=== PATIENT | male | born 1985 | race Caucasian/White ===

== ENCOUNTER 2017-03-17 14:11 | Emergency (ER) | payer MEDICAID ==
--- NOTE | 2017-03-17 14:35 | EDPHY ---
H & P Stated Complaint: fell hit head last night last night, disoriented HPI/ROS: CHIEF COMPLAINT: Fell last night, worried about concussion HISTORY OF PRESENT ILLNESS: This is a 31-year-old male who is accompanied by his fiancee today. He was intoxicated last night and fell, striking his head against a wall. There was no loss of consciousness. He has headache today and reported to the nurse that he feels somewhat disoriented. He denies visual changes, confusion, weakness, or numbness to me. He does not have neck pain. He is concerned about the possibility of concussion and his fiancee is concerned that he could have intracranial bleeding. He has not had seizure. There have been no behavioral changes today. He reports drinking 3-4 times weekly, a 5th of vodka each time. He admits that he has a problem with alcohol abuse. He was sober for a time period of 3 years but has resumed drinking. He has never had any problems with alcohol withdrawal symptoms. REVIEW OF SYSTEMS: A ten point review of systems was performed and is negative with the exception of the items mentioned in the HPI. Past medical history: 1. History of alcohol abuse 2. 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 He is engaged to be . He smokes 1 pack of cigarettes daily. He drinks 3-4 times weekly, and will drink a 5th of vodka at a sitting. General Appearance: Alert. Vital signs reviewed. Blood pressure 162/126 at triage. Blood pressure at discharge 152/101. Eyes: Pupils equal and round, no conjunctival injection, no discharge. Anicteric. ENT, Mouth: Mucous membranes are moist, no oropharyngeal erythema or edema. Neck: No lymphadenopathy, supple. Nontender to palpation over the cervical spine in the midline. Respiratory: Lungs are clear to auscultation; no wheezes, rales, or rhonchi. Cardiovascular: Regular rate and rhythm; no murmur, rub, or gallop. Gastrointestinal: Abdomen is soft and nontender, no masses or organomegaly, bowel sounds normal. Skin: Warm and dry, no rashes on exposed skin, normal color. Back: Nontender to palpation over the thoracolumbar spine. No CVAT. Extremities: No lower extremity edema, no calf tenderness or swelling. Neurological: Alert and oriented. Moving all four extremities easily and equally. Cranial nerves II through XII are examined and are intact (visual acuity not tested). Strength is 5 over 5 bilaterally with testing of all major motor groups. Sensation is intact to light touch over all 4 extremities. Deep tendon reflexes are 2+ in the biceps and 3+ in the knees bilaterally. No clonus. Gait is normal. [id number] is performed accurately. Psychiatric: Normal affect. - Medical/Surgical History Hx Asthma: No Hx Chronic Respiratory Disease: No Hx Diabetes: No Hx Cardiac Disease: No Hx Renal Disease: No Hx Cirrhosis: No Hx Alcoholism: No Hx HIV/AIDS: No Hx Splenectomy or Spleen Trauma: No Other PMH: hernia sx - Social History Smoking Status: Current every day smoker Constitutional: Initial Vital Signs Temperature (C) 37 C 03/17/17 14:14 Heart Rate 92 03/17/17 14:14 Respiratory Rate 18 03/17/17 14:14 Blood Pressure 162/126 H 03/17/17 14:14 O2 Sat (%) 96 03/17/17 14:14 O2 Delivery Mode Room Air Allergies/Adverse Reactions: No Known Allergies Allergy (Unverified 03/17/17 14:14) Home Medications: Medication Instructions Recorded NK [No Known Home Meds] 03/17/17 Medical Decision Making ED Course/Re-evaluation: 31-year-old male with history of alcohol abuse who presents after falling and striking his head last night. He has headache today; neurologic exam is normal. I do not recommend brain imaging in this setting. It is unlikely that of surgical otherwise pertinent abnormality would be discovered on CT scanning of the brain. I have discussed this with the patient and his fiancee and they are fine with the decision to forego any imaging. I have not found evidence of any injuries incurred during the fall. We spoke at some length about his alcohol abuse. I strongly recommended that he quit drinking. He is given information about the a hotline and also the [facility]. We also discussed smoking cessation. He smokes 1 pack a day. He was hypertensive while in the emergency department. Some of this might be related to the fact that he has not had any alcohol today. He is aware that his blood pressure is high. He does not have a primary care physician but is referred to 1 and understands that he should have his blood pressure rechecked within the month. Differential Diagnosis: I considered a differential diagnosis that includes but is not limited to tension headache, concussion, intracranial hemorrhage, skull fracture, cervical strain, and cervical spine injury. Departure - Departure Disposition: Home, Routine, Self-Care Clinical Impression: Alcohol abuse Condition: Good Instructions: Concussion (ED), Abuse of Alcohol (ED) Additional Instructions: As we discussed, I think that it is important for you to quit drinking. I am giving you referrals to Alcoholics Anonymous and to the [facility]. I also recommend that you try to quit smoking. I am also giving you information about concussion. I do not know that you have a concussion, but it is important for you to have this information to refer to. When you return home today should drink lots of water. I recommend that you take Tylenol and/or ibuprofen for pain. Adult Pain & Fever Control: We recommend Acetaminophen (Tylenol) and Ibuprofen (Motrin,Advil) for pain and fever control. When fever is high or pain severe, both drugs can be used at the same time, but at different intervals. Please note the time differences. Your dose is: Acetaminophen 650mg every 4 to 6 hours Ibuprofen 400mg every 6 hours with food OR Naproxen Sodium (Aleve) mg every 12 hours. Note: do not take Acetaminophen with Hydrocodone (Vicodin, Lortab) or Oycodone (Percocet). These medications also contain Acetaminophen. No more than 3000mg of Acetaminophen should be taken in 24 hours (for an adult). Referrals: Tasha Ley MD [[facility] [place]] - As per Instructions AA Hotline [Outside] - As per Instructions [facility] 24 Hours [Outside] - As per Instructions Physician Review and Approval Statement: 03/17/17 14:34 Portions of this note were transcribed by the medical claims processor. I, Dr. Asia Richard, personally performed the history, physical exam, and medical decision- making; and confirmed the accuracy of the information in the transcribed note.
[2017-03-17 15:09] VITALS: BP 152/101; PULSE 88; RESP 16; TEMP 97.9; O2SAT 97
== END 2017-03-17 15:09 | disposition home or self-care (01) ==
DX: S09.90XA Unspecified injury of head, initial encounter (principal); W19.XXXA Unspecified fall, initial encounter; R51 Headache; F10.10 Alcohol abuse, uncomplicated; F17.200 Nicotine dependence, unspecified, uncomplicated
CPT/HCPCS: J2405

== ENCOUNTER 2017-03-17 22:07 | Emergency (ER) | payer MEDICAID ==
--- NOTE | 2017-03-17 22:12 | EDPHY ---
H & P HPI/ROS: HPI CHIEF COMPLAINT: Headache HISTORY OF PRESENT ILLNESS: This patient 31-year-old male, significant past medical history for alcohol abuse and tobacco abuse. He is an alcoholic. He was seen here earlier in the emergency room around 2 o'clock for possible head injury. At that time he did not have a CT scan of his head. He was sober at that time. After leaving the emergency room he went out and drank a large amount of alcohol to the point where he is highly intoxicated. His returns with him at 10 o'clock at night as he is highly intoxicated alcohol and vomited 1 time that she describes projectile. Patient distally tells me has a global frontal headache. His is concerned that he may have an intracranial bleed and that is why she brought him back. The patient neurological exam is unremarkable here in the emergency room other than he is highly intoxicated alcohol slurring his speech. The patient had a fall yesterday after becoming intoxicated. Striking his head. Past Medical History: Alcoholism, tobacco use Past Surgical History: No recent surgery Social History: Daily alcohol use, daily tobacco use Family History: Noncontributory ROS REVIEW OF SYSTEMS: A comprehensive 10 point review of systems is otherwise negative aside from elements mentioned in the history of present illness. Exam Constitutional intoxicated, smells of alcohol, triage nursing summary reviewed , vital signs reviewed, awake/alert. Eyes normal conjunctivae and sclera, EOMI, PERRLA. Horizontal beating nystagmus consistent with acute alcohol intoxication HENT normal inspection, atraumatic, moist mucus membranes, no epistaxis, neck supple/ no meningismus, no raccoon eyes. Respiratory clear to auscultation bilaterally, normal breath sounds, no respiratory distress, no wheezing. Cardiovascular rate normal, regular rhythm, no murmur, no edema, distal pulses normal. Gastrointestinal soft, non-tender, no rebound, no guarding, normal bowel sounds, no distension, no pulsatile mass. Genitourinary no CVA tenderness. Musculoskeletal no midline vertebral tenderness, full range of motion, no calf swelling, no tenderness of extremities, no meningismus, good pulses, neurovascularly intact. Skin pink, warm, & dry, no rash, skin atraumatic. Neurologic awake, alert and oriented x 3, AAOx3, moves all 4 extremities equally, motor intact, sensory intact, CN II-XII intact, normal vision, slurring his speech due to acute alcohol intoxication Psychiatric normal mood/affect. Heme/Lymph/Immune no lymphadenopathy. Differential Diagnosis: Includes but is not limited to in a particular order closed-head injury, intracranial bleed, skull fracture, subdural, epidural, acute alcohol intoxication Medical Decision Making: Plan for this patient CT scan head without contrast, patient is refusing IV at this time. Will breath alcohol. Re-evaluation: CT scan of the head without contrast. The results of the study are negative for acute traumatic injury. The study was read by Dr. Camacho I viewed the images myself on the PACS system. Breath alcohol 0.228 2308: Re-evaluation at this time patient resting comfortably no acute distress. Acutely intoxicated with alcohol. CT scan of his head does not show acute traumatic injury. He is receiving IV fluids and Zofran at this time. Once more clinically sober he can be discharged from the emergency room with his fiancee. 2327: Re-evaluation at this time patient requesting discharge. He is clinically sober. Stable gait. Feels comfortable going home. Feels at bedside feels comfortable this plan. CT scan has had not show any significant trauma. Alcohol was elevated at breath alcohol 0.228. Feeling better. Would like to go home. Source: Patient - Medical/Surgical History Hx Asthma: No Hx Chronic Respiratory Disease: No Hx Diabetes: No Hx Cardiac Disease: No Hx Renal Disease: No Hx Cirrhosis: No Hx Alcoholism: No Hx HIV/AIDS: No Hx Splenectomy or Spleen Trauma: No Other PMH: hernia sx - Social History Smoking Status: Current every day smoker Constitutional: Initial Vital Signs Temperature (C) 36.6 C 03/17/17 22:21 Heart Rate 97 03/17/17 22:21 Respiratory Rate 18 03/17/17 22:21 Blood Pressure 155/119 H 03/17/17 22:21 O2 Sat (%) 96 03/17/17 22:21 O2 Delivery Mode Room Air Allergies/Adverse Reactions: No Known Allergies Allergy (Unverified 03/17/17 14:14) Home Medications: Medication Instructions Recorded NK [No Known Home Meds] 03/17/17 Medical Decision Making - Diagnostics Imaging Results: Imaging Impressions Head CT 03/17/17 22:20 Impression: Normal. Results called and discussed with Rudolph Romero MD at 03/17/2017 22:45. Departure - Departure Disposition: Home, Routine, Self-Care Clinical Impression: Alcohol abuse Condition: Fair Instructions: Alcohol Intoxication (ED), Abuse of Alcohol (ED) Referrals: NONE *PRIMARY CARE P,. [Primary Care Provider] - As per Instructions
[2017-03-17 22:23] VITALS: RESP 18; TEMP 97.9
[2017-03-17] MEDS ORDERED: ONDANSETRON 4 MG/2 ML VIAL IVP ONE (23:05)
[2017-03-17] MEDS ORDERED: NS 1,000 ML IV ONE (23:05)
[2017-03-17 23:07] VITALS: BP 114/104; PULSE 88; O2SAT 95
== END 2017-03-17 23:34 | disposition home or self-care (01) ==
DX: S09.90XA Unspecified injury of head, initial encounter (principal); W01.198A Fall on same level from slipping, tripping and stumbling with subsequent striking against other object, initial encounter; F10.10 Alcohol abuse, uncomplicated; F17.200 Nicotine dependence, unspecified, uncomplicated
CPT/HCPCS: J2405

== ENCOUNTER 2017-06-21 21:53 | Emergency (ER) | payer SELFPAY ==
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
[2017-06-21 22:05] VITALS: BP 121/99; PULSE 107; RESP 18; TEMP 98.1; O2SAT 93
== END 2017-06-21 22:12 ==
LOC: EDUNIT#
DX: F10.129 Alcohol abuse with intoxication, unspecified (principal); F17.200 Nicotine dependence, unspecified, uncomplicated

== ENCOUNTER 2017-10-13 21:49 | Emergency (ER) | payer MEDICAID ==
[2017-10-13] MEDS ORDERED: TDAP ADULT 0.5 ML INJ (BOOSTRIX) IM ONE (21:56)
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
[2017-10-13 21:58] VITALS: BP 133/89; PULSE 105; RESP 18; TEMP 98.1; O2SAT 98
[2017-10-13] MEDS ORDERED: CEFAZOLIN 330 MG/ML IM SYRINGE IM ONE ×2 (22:16→23:00)
== END 2017-10-13 22:49 | disposition home or self-care (01) ==
LOC: EDUNIT#
PROC: 0HQGXZZ Repair Left Hand Skin, External Approach (ICD-10-PCS; principal; 2017-10-13)
DX: S62.611B Displaced fracture of proximal phalanx of left index finger, initial encounter for open fracture (principal); F17.200 Nicotine dependence, unspecified, uncomplicated; W22.8XXA Striking against or struck by other objects, initial encounter
CPT/HCPCS: L3925

== ENCOUNTER 2017-10-14 17:59 | Inpatient (IN) | payer MEDICAID ==
[2017-10-14] MEDS ORDERED: chlordiazePOXIDE 25 MG CAP PO ONE (18:21)
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
[2017-10-14 18:51] LABS: PLATELET COUNT 285 10^3/uL (150-400)
[2017-10-14] MEDS ORDERED: HYDROCODONE/APAP 5/325 TAB PO ONE (21:57)
[2017-10-14] MEDS ORDERED: CEPHALEXIN 500 MG CAP PO ONE (21:57)
[2017-10-14] MEDS ORDERED: ONDANSETRON 4 MG/2 ML VIAL IVP PRN (23:15)
[2017-10-14] MEDS ORDERED: ACETAMINOPHEN 325 MG TAB PO PRN (23:15)
[2017-10-14] MEDS: LORazepam 0.5 MG TAB PO PRN (23:50)
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
[2017-10-15] MEDS ORDERED: diphenhydrAMINE 25 MG CAP PO PRN (00:36)
[2017-10-15] MEDS: LORazepam 2 MG/ML INJ IVP PRN (01:39)
[2017-10-15 05:18] LABS: PLATELET COUNT 219 10^3/uL (150-400)
[2017-10-15] MEDS: CEPHALEXIN 500 MG CAP PO SCH ×3 (06:10→16:58)
--- NOTE | 2017-10-15 07:13 | PDHPUP ---
History & Physical Update H&P update statement: This history and physical update is based on an assessment of the patient which was completed after admission or registration (within 24 hours), but prior to the surgery/procedure. H&P update: H&P reviewed & patient examined, no change in patient's condition since H&P completed
[2017-10-15] MEDS: THIAMINE HCL 100 MG TAB PO SCH (08:08)
[2017-10-15] MEDS: HYDROCODONE/APAP 5/325 TAB PO PRN ×3 (08:24→17:54)
--- NOTE | 2017-10-15 09:54 | PDMN ---
Medical Necessity Medical necessity: Patient meets inpatient criteria per physician note and [facility] GRG vs Musculoskeletal Surgery or Procedure GRG (open hand fracture, awaiting surgical treatment; M1 mental health hold, awaiting eval for possible inpatient psych treatment.)
--- NOTE | 2017-10-15 14:33 | ASMTCMCOM ---
CM Note CM Note Notes: 31yr old male admitted from the snf due to suicidal ideation, fx finger, ETOH abuse. Patient has been medically cleared for TLC eval. CM to follow for possible discharge needs. Date Signed: 10/15/2017 02:33 PM Electronically Signed By:Allison Cordero LCSW
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
[2017-10-15] MEDS: LORazepam 0.5 MG TAB PO PRN (16:58)
[2017-10-16] MEDS: NS 1,000 ML IV SCH (00:20)
[2017-10-16] MEDS: CEPHALEXIN 500 MG CAP PO SCH ×5 (00:20→20:36)
[2017-10-16] MEDS: HYDROCODONE/APAP 5/325 TAB PO PRN ×4 (00:21→20:35)
[2017-10-16] MEDS: LORazepam 0.5 MG TAB PO PRN ×3 (00:21→20:36)
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
[2017-10-16] MEDS: THIAMINE HCL 100 MG TAB PO SCH (08:34)
--- NOTE | 2017-10-16 10:00 | HOSPPROG ---
Hospitalist Progress Note Assessment/Plan: #Etoh dependence and withdrawal: min CIWA needs here. Left index finger fracture: Dr. Bates plans on surgery today #Suicidal ideations: M1 hold. Will be transferred to Behavioral health after surgery #MDD/PTSD: transfer plan as above Disp: DC after hand surgery Subjective: sleeping Objective: Vital Signs Temp Pulse Resp BP Pulse Ox 36.6 C 69 16 150/110 H 96 10/16/17 07:30 10/16/17 07:30 10/16/17 07:30 10/16/17 07:30 10/16/17 07:30 10/15/17 10/16/17 10/17/17 05:59 05:59 05:59 Intake Total 1500 Balance 1500 - Physical Exam Constitutional: no apparent distress, other Eyes: PERRL Ears, Nose, Mouth, Throat: moist mucous membranes Cardiovascular: regular rate and rhythym Respiratory: no respiratory distress Gastrointestinal: normoactive bowel sounds Genitourinary: no bladder fullness Musculoskeletal: full muscle strength, other (left hand casted) Neurologic: AAOx3, CN II-XII Intact Psychiatric: flat affect ICD10 Worksheet Patient Problems: Problems Problem Status Onset Hand fracture Acute
--- NOTE | 2017-10-16 12:53 | ASMTCMCOM ---
CM Note CM Note Notes: Patient remains suicidal although he is now agreeing to needed surgery. When cleared from surgical procedures, patient to go to , [facility], who is holding a bed for him. CM available for consult and transport needs. CM will follow. Date Signed: 10/16/2017 12:52 PM Electronically Signed By:Cristal Aguirre LCSW
[2017-10-16] MEDS ORDERED: BUPIVACAINE 0.5% 30 ML SDV ONE (15:34)
--- NOTE | 2017-10-16 16:16 | PDANEPAE ---
ANE History of Present Illness Left index finger fracture ANE Past Medical History - Pulmonary History Hx Oxygen in Use at Home: No Hx Sleep Apnea: No Sleep Apnea Screening Result - Last Documented: Positive - Endocrine History Hx Diabetes: No - Chronic Pain History Chronic Pain: No ANE Review of Systems Review of Systems: - Exercise capacity METS (RN): 4 METS - Systems Neurological: Reports: seizure (with etoh withdrawal) ANE Patient History - Allergies Allergies/Adverse Reactions: No Known Allergies Allergy (Verified 10/14/17 18:18) - Home Medications Home medications: home medication list seen and reviewed Home Medications: Naproxen Sodium [Aleve 220 MG (*)] 220 mg PO DAILY PRN 10/15/17 [Last Taken Unknown] - NPO status NPO Since - Liquids (Date): 10/16/17 NPO Since - Liquids (Time): 13:30 NPO Since - Solids (Date): 10/15/17 NPO Since - Solids (Time): 00:00 - Anes Hx Anes Hx: no prior problems - Smoking Hx Smoking Status: Heavy smoker - Alcohol Use Alcohol Use: Heavy (Of 5th to greater than 1 L of hard liquor on a daily basis since the age of 10) - Family Anes Hx Family Anes Hx: neg - N/A ANE Labs/Vital Signs - Labs Result Diagrams: 10/15/17 05:00 10/15/17 05:00 - Vital Signs Blood Pressure: 126/91 Heart Rate: 65 Respiratory Rate: 16 O2 Sat (%): 97 Height: 175.26 cm Weight: 90.718 kg ANE Physical Exam - Airway Neck exam: FROM Mallampati Score: Class 1 Mouth exam: dentures (upper) - Pulmonary Pulmonary: clear to auscultation - Cardiovascular Cardiovascular: regular rate and rhythym - ASA Status ASA Status: II ANE Anesthesia Plan Anesthesia Plan: GA w LMA
[2017-10-16] MEDS ORDERED: MIDAZOLAM 2 MG/2 ML VIAL IVP ONE (16:19)
[2017-10-16] MEDS ORDERED: PROPOFOL 200 MG/20 ML VIAL ONE ×3 (17:15→17:24)
[2017-10-16] MEDS ORDERED: fentaNYL 100 MCG/2 ML INJ ONE ×2 (17:16→17:40)
[2017-10-16] MEDS ORDERED: DEXAMETHASONE 4 MG/ML VIAL ONE (17:31)
[2017-10-16] MEDS ORDERED: ONDANSETRON 4 MG/2 ML VIAL ONE (17:31)
[2017-10-16] MEDS ORDERED: NALOXONE HCL 0.4 MG/ML INJ IVP PRN (17:35)
[2017-10-16] MEDS ORDERED: HYDROmorphONE/DILAUDID 1 MG/ML INJ IVP PRN (17:35)
[2017-10-16] MEDS ORDERED: ONDANSETRON 4 MG/2 ML VIAL IVP PRN (17:35)
[2017-10-16] MEDS ORDERED: fentaNYL 100 MCG/2 ML INJ IVP PRN (17:35)
--- NOTE | 2017-10-16 18:45 | POSTOPPROG ---
Post Op Note Date of Operation: 10/16/17 Surgeon: Vivien Bates Anesthesiologist: louie Anesthesia: LMA Pre-op Diagnosis: open L IF fx Procedure: I&D L IF with CRPP with fluoro and extensor guzman repair Inf/Abcess present in the surg proc area at time of surgery?: Yes Depth: Deep Incisional (Fascial) EBL: 50-100
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
[2017-10-17] MEDS: LORazepam 2 MG/ML INJ IVP PRN (00:45)
[2017-10-17] MEDS: HYDROCODONE/APAP 5/325 TAB PO PRN ×4 (00:45→12:59)
[2017-10-17] MEDS: NS 1,000 ML IV SCH ×2 (00:46→06:12)
[2017-10-17] MEDS: LORazepam 0.5 MG TAB PO PRN (08:36)
[2017-10-17] MEDS: THIAMINE HCL 100 MG TAB PO SCH (08:37)
[2017-10-17 12:13] VITALS: BP 133/83; PULSE 66; RESP 18; TEMP 97.8; O2SAT 94
--- NOTE | 2017-10-17 12:47 | SOAPPROG ---
GIL Progress Note Assessment/Plan: Assessment: Plan: - doing well, will monitor 10/17/17 12:46 Subjective: Doing well, pain controlled, no issues Objective: Vital Signs Temp Pulse Resp BP Pulse Ox 36.6 C 66 18 133/83 H 94 10/17/17 12:00 10/17/17 12:00 10/17/17 12:00 10/17/17 12:00 10/17/17 12:00 10/16/17 10/17/17 10/18/17 05:59 05:59 05:59 Intake Total 1500 2100 350 Output Total 1400 200 Balance 1500 700 150 splint cdi, nt, nvi - Time Spent With Patient Time Spent With Patient: 10 - Pending Discharge Pending Discharge Within 24 Hours: No Pending Discharge Within 48 Hours: No ICD10 Worksheet Patient Problems: Problems Problem Status Onset Hand fracture Acute
--- NOTE | 2017-10-17 13:28 | GDS ---
[f rep st] DISCHARGE SUMMARY Please see discharge summary dated 10/16/2017 for full details. I planned for discharge yesterday; however, surgery was later than expected. He underwent left index finger irrigation and debridement with closed reduction and percutaneous pinning of the proximal phalanx. DISPOSITION: Patient is stable for discharge and transferred to [facility]. MEDICATIONS: Continue Keflex through 10/20/2017. Ativan 1 mg p.r.n. anxiety. Oxycodone for pain FOLLOWUP: Dr. Bates in 10-14 days. PHYSICAL EXAMINATION: VITAL SIGNS: Today, temperature 36.8, blood pressure 134 /98, heart rate 60s, respiration rate 14, 96% on room air. GENERAL: Well appearing, lying in bed, in no acute distress. HEENT: PERRLA. EOMI. Oropharynx clear. CV: Regular rate and rhythm. No murmurs, gallops, or rubs. LUNGS: Clear. ABDOMEN: Soft, nontender, nondistended. MUSCULOSKELETAL: The left hand is casted, wrapped in Hai bandage. Right upper extremity with ecchymosis secondary to IV. NEURO: 2 through 12 intact. PSYCH: Alert and oriented x3. Flat affect. /[id number]/MODL MTDD
[2017-10-17] MEDS ORDERED: oxyCODONE IR 5 MG TAB PO PRN (14:01)
[2017-10-17] MEDS ORDERED: KETOROLAC 30 MG/1 ML SDV IVP ONE (14:01)
== END 2017-10-17 16:14 | DRG 876 ==
LOC: F2N 23:57 → EEVIPCON 10-15 09:31 → OBSVTOIN 10-15 09:31
PROVIDERS: ADMIT Family Medicine; ATTEND Family Medicine
PROC: 0HBGXZZ Excision of Left Hand Skin, External Approach (ICD-10-PCS; principal; 2017-10-16 15:00)
PROC: 0PSV35Z Reposition Left Finger Phalanx with External Fixation Device, Percutaneous Approach (ICD-10-PCS; principal; 2017-10-16 15:00)
DX: F32.9 Major depressive disorder, single episode, unspecified (principal); F43.10 Post-traumatic stress disorder, unspecified; S62.631B Displaced fracture of distal phalanx of left index finger, initial encounter for open fracture; Y35.893A Legal intervention involving other specified means, suspect injured, initial encounter; W20.8XXA Other cause of strike by thrown, projected or falling object, initial encounter
CPT/HCPCS: 80305; C1713; G0378; G0480; J0690; J1100; J1885; J2060; J2250; J2405; J2704; J3010

== ENCOUNTER 2017-10-17 15:55 | Inpatient (IN) | payer MEDICAID ==
[2017-10-17] MEDS: LORazepam 1 MG TAB PO PRN ×2 (17:33→22:24)
[2017-10-17] MEDS: oxyCODONE IR 5 MG TAB PO PRN (20:07)
[2017-10-17] MEDS ORDERED: MAG HYDROX/AL HYDROX/SIMETH 30 ML UDCUP PO PRN (20:19)
[2017-10-17] MEDS ORDERED: NICOTINE POLACRILEX 2 MG GUM B PRN (20:19)
[2017-10-17] MEDS ORDERED: MAGNESIUM HYDROXIDE 30 ML UDCUP PO PRN (20:19)
[2017-10-18] MEDS: oxyCODONE IR 5 MG TAB PO PRN ×3 (02:38→19:36)
[2017-10-18] MEDS: OLANZapine DISINTEGR 10 MG TAB PO PRN ×3 (02:38→17:24)
[2017-10-18] MEDS: LORazepam 1 MG TAB PO PRN ×2 (02:38→09:19)
[2017-10-18] MEDS: CEPHALEXIN 500 MG CAP PO SCH ×4 (02:39→17:19)
[2017-10-18] MEDS: ACETAMINOPHEN 325 MG TAB PO PRN ×2 (12:35→17:24)
[2017-10-18] MEDS: DIVALPROEX NA 500 MG TAB PO SCH ×2 (14:11→21:37)
[2017-10-18] MEDS: NAPROXEN SODIUM 220 MG TAB PO SCH ×2 (14:11→21:37)
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
[2017-10-18] MEDS: FAMOTIDINE 20 MG TAB PO SCH (21:37)
[2017-10-19] MEDS: CEPHALEXIN 500 MG CAP PO SCH ×5 (00:08→23:45)
[2017-10-19] MEDS: ACETAMINOPHEN 325 MG TAB PO PRN ×2 (00:08→12:43)
[2017-10-19] MEDS: PRAZOSIN HCL 1 MG CAP PO PRN (00:08)
[2017-10-19] MEDS: OLANZapine DISINTEGR 10 MG TAB PO PRN ×5 (00:08→23:53)
[2017-10-19] MEDS: oxyCODONE IR 5 MG TAB PO PRN ×4 (02:37→20:57)
[2017-10-19] MEDS: NAPROXEN SODIUM 220 MG TAB PO SCH ×2 (08:36→20:53)
[2017-10-19] MEDS: DIVALPROEX NA 500 MG TAB PO SCH ×3 (08:36→20:54)
[2017-10-19] MEDS: THIAMINE HCL 100 MG TAB PO SCH (08:37)
[2017-10-19] MEDS: FAMOTIDINE 20 MG TAB PO SCH ×2 (08:37→20:54)
[2017-10-19] MEDS: FOLIC ACID 1 MG TAB PO SCH (08:37)
[2017-10-19] MEDS ORDERED: DIVALPROEX NA 500 MG TAB PO SCH (10:00)
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
[2017-10-20] MEDS: oxyCODONE IR 5 MG TAB PO PRN ×4 (03:01→21:21)
[2017-10-20] MEDS: CEPHALEXIN 500 MG CAP PO SCH ×4 (05:13→23:56)
[2017-10-20] MEDS: OLANZapine DISINTEGR 10 MG TAB PO PRN ×2 (05:13→21:21)
[2017-10-20] MEDS: DIVALPROEX NA 500 MG TAB PO SCH ×3 (07:50→20:36)
[2017-10-20] MEDS: FAMOTIDINE 20 MG TAB PO SCH ×2 (07:50→21:20)
[2017-10-20] MEDS: FOLIC ACID 1 MG TAB PO SCH ×2 (07:51→08:15)
[2017-10-20] MEDS: NAPROXEN SODIUM 220 MG TAB PO SCH ×2 (08:14→21:20)
[2017-10-20] MEDS: THIAMINE HCL 100 MG TAB PO SCH (08:14)
[2017-10-21] MEDS: OLANZapine DISINTEGR 10 MG TAB PO PRN (01:29)
[2017-10-21] MEDS: oxyCODONE IR 5 MG TAB PO PRN ×4 (02:57→21:05)
[2017-10-21] MEDS: PRAZOSIN HCL 1 MG CAP PO PRN (02:57)
[2017-10-21] MEDS: CEPHALEXIN 500 MG CAP PO SCH ×3 (05:35→21:04)
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
[2017-10-21] MEDS: NAPROXEN SODIUM 220 MG TAB PO SCH ×2 (08:56→21:04)
[2017-10-21] MEDS: FOLIC ACID 1 MG TAB PO SCH (08:56)
[2017-10-21] MEDS: DIVALPROEX NA 500 MG TAB PO SCH ×2 (08:57→21:03)
[2017-10-21] MEDS: FAMOTIDINE 20 MG TAB PO SCH ×2 (08:57→21:06)
[2017-10-21] MEDS: THIAMINE HCL 100 MG TAB PO SCH (08:58)
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
[2017-10-21] MEDS ORDERED: DIVALPROEX NA 500 MG TAB PO ONE (13:00)
[2017-10-21] MEDS: NICOTINE 14 MG/24 HR PATCH TD SCH (14:15)
[2017-10-21] MEDS: QUEtiapine FUMARATE 200 MG TAB PO SCH (21:04)
[2017-10-22] MEDS: CEPHALEXIN 500 MG CAP PO SCH ×3 (00:21→12:27)
[2017-10-22] MEDS: oxyCODONE IR 5 MG TAB PO PRN ×6 (00:24→21:59)
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
[2017-10-22] MEDS: DIVALPROEX NA 500 MG TAB PO SCH ×2 (09:05→21:08)
[2017-10-22] MEDS: OMEGA-3 FATTY ACIDS 1,000 MG CAP PO SCH (09:05)
[2017-10-22] MEDS: NAPROXEN SODIUM 220 MG TAB PO SCH ×2 (09:06→21:15)
[2017-10-22] MEDS: FAMOTIDINE 20 MG TAB PO SCH ×2 (09:08→21:15)
[2017-10-22] MEDS: NICOTINE 14 MG/24 HR PATCH TD SCH (09:08)
[2017-10-22] MEDS: THIAMINE HCL 100 MG TAB PO SCH (09:08)
[2017-10-22] MEDS: FOLIC ACID 1 MG TAB PO SCH (09:08)
[2017-10-22] MEDS: QUEtiapine FUMARATE 200 MG TAB PO SCH (21:15)
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
[2017-10-22] MEDS: QUEtiapine FUMARATE 100 MG TAB PO PRN (22:33)
[2017-10-23] MEDS: oxyCODONE IR 5 MG TAB PO PRN ×4 (02:01→19:48)
[2017-10-23] MEDS: DIVALPROEX NA 500 MG TAB PO SCH ×2 (08:33→20:44)
[2017-10-23] MEDS: NICOTINE 14 MG/24 HR PATCH TD SCH (08:33)
[2017-10-23] MEDS: QUEtiapine FUMARATE 100 MG TAB PO PRN ×2 (08:33→22:39)
[2017-10-23] MEDS: OMEGA-3 FATTY ACIDS 1,000 MG CAP PO SCH (08:34)
[2017-10-23] MEDS: FAMOTIDINE 20 MG TAB PO SCH ×2 (08:34→20:45)
[2017-10-23] MEDS: THIAMINE HCL 100 MG TAB PO SCH (08:34)
[2017-10-23] MEDS: NAPROXEN SODIUM 220 MG TAB PO SCH ×2 (08:34→20:44)
[2017-10-23] MEDS: FOLIC ACID 1 MG TAB PO SCH (08:34)
[2017-10-23] MEDS ORDERED: QUEtiapine FUMARATE 200 MG TAB PO SCH (08:54)
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
[2017-10-24 06:29] VITALS: BP 131/76
[2017-10-24] MEDS: OMEGA-3 FATTY ACIDS 1,000 MG CAP PO SCH (08:03)
[2017-10-24] MEDS: FOLIC ACID 1 MG TAB PO SCH (08:03)
[2017-10-24] MEDS: NICOTINE 14 MG/24 HR PATCH TD SCH (08:03)
[2017-10-24] MEDS: DIVALPROEX NA 500 MG TAB PO SCH (08:04)
[2017-10-24] MEDS: THIAMINE HCL 100 MG TAB PO SCH (08:04)
[2017-10-24] MEDS: QUEtiapine FUMARATE 100 MG TAB PO PRN (08:04)
[2017-10-24] MEDS: FAMOTIDINE 20 MG TAB PO SCH (08:04)
[2017-10-24] MEDS: NAPROXEN SODIUM 220 MG TAB PO SCH (08:04)
[2017-10-24] MEDS: oxyCODONE IR 5 MG TAB PO PRN (08:04)
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
== END 2017-10-24 11:50 | disposition home or self-care (01) | DRG 885 ==
LOC: BBEH 15:55
PROVIDERS: ADMIT Psychiatry & Neurology Psychiatry; ATTEND Psychiatry & Neurology Psychiatry
DX: F31.13 Bipolar disorder, current episode manic without psychotic features, severe (principal); F43.10 Post-traumatic stress disorder, unspecified; F10.20 Alcohol dependence, uncomplicated; F12.20 Cannabis dependence, uncomplicated; Z72.811 Adult antisocial behavior

== ENCOUNTER 2017-11-18 11:21 | Emergency (ER) | payer MEDICAID ==
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
[2017-11-18] MEDS ORDERED: OLANZapine DISINTEGR 5 MG TAB PO ONE (12:28)
[2017-11-18 12:55] LABS: PLATELET COUNT 257 10^3/uL (150-400)
[2017-11-18 23:26] VITALS: BP 123/63
== END 2017-11-19 01:46 ==
DX: R45.851 Suicidal ideations (principal); F30.13 Manic episode, severe, without psychotic symptoms; F17.200 Nicotine dependence, unspecified, uncomplicated
CPT/HCPCS: 80305; G0480

== ENCOUNTER 2018-04-11 13:36 | Emergency (ER) | payer MEDICAID ==
[2018-04-11 13:43] VITALS: BP 149/108
== END 2018-04-11 15:00 | disposition left against medical advice (07) ==
DX: R05 Cough (principal); R50.9 Fever, unspecified; Z53.21 Procedure and treatment not carried out due to patient leaving prior to being seen by health care provider

== ENCOUNTER 2018-10-18 13:42 | Emergency (ER) | payer MEDICAID ==
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
[2018-10-18 15:22] LABS: PLATELET COUNT 294 10^3/uL (150-400)
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
--- NOTE | 2018-10-18 20:09 | ASMTTCLDSP ---
TLC Discharge Disposition Disposition: Answers: Transfer Disposition Notes: Notes: In consultation with [facility] ED physician, Leeroy Finch MD and on-call psychiatrist, Juan Antonio Mesa MD, both concurred that pt appears to meet 27-65 criteria requiring psychiatric hospitalization as pt appears to be at risk of harm to self and others due to a mental illness condition. Was patient given the Answers: Not applicable Inpatient Behavioral Health Prohibited Belongings List while in the ED? Date and time M1 hold 10/18/2018 03:00 PM vacated (time format is hh:mm): Type of Hold: Answers: M1/72-hour Hold Hold initiated by: Answers: ED Physician For Transfers, Accepting [facility] Facility: For Transfers, Accepting Reji Bravo MD Psychiatrist: For Transfers, Reason PT is a [place] and Needs PTSD treatment and Patient is Being stablization. Transferred: Date Signed: 10/18/2018 08:08 PM Electronically Signed By:Gonzalo Rey
[2018-10-18 22:07] VITALS: BP 168/108
== END 2018-10-18 23:00 ==
LOC: EEVIPCON 13:42
DX: R45.851 Suicidal ideations (principal); R45.850 Homicidal ideations
CPT/HCPCS: 80305; G0480

== ENCOUNTER 2018-11-29 11:40 | Emergency (ER) | payer MEDICAID ==
--- NOTE | 2018-11-29 11:55 | EDPHY ---
H & P Stated Complaint: Had panic attack 2 days ago --today "tastes metal in mouth & sweaty palms" Time Seen by Provider: 11/29/18 11:54 HPI/ROS: HPI: This is a 33-year-old male who presents with Chief Complaint: Had panic attack 2 days ago --today "tastes metal in mouth & sweaty palms" Location: Psychiatric Quality: Panic attacks Duration: 1 month Signs and Symptoms: no shortness of breath at rest, no shortness of breath on exertion, no cough, no chest pain, no palpitations, no lower extremity edema, no wheezing, no orthopnea, no paroxysmal nocturnal dyspnea, no fever, no injury/ trauma, no hemoptysis, no carpal pedal spasms Timing: Acute on chronic Severity: 04/23 Context: Patient has a history of posttraumatic stress disorder, alcohol abuse now in recovery since 2018, anxiety presents accompanied by his counselor, Estela Lambert, with complaints of worsening anxiety and panic attacks. Two days ago he "had a worse panic attack he has ever had." He has sweaty palms feels numbness and tingling in both arms, stare straight ahead, hyperventilates. He is afraid to leave house which is new over the last month. He was started on 2 new medications this month; buspirone and prazosin. Continues to takes Seroquel and propanolol. Scheduled to see the psychiatrist on December 20 for medication adjustment. Patient feels safe at home with his significant other and counselor feels that patient is appropriate to be treated outpatient. Has noted elevated blood pressure over the last month. Pt reports having a panic attack 1 month ago and another one 2 ays ago; states he had a third one today; reports being under lots of stress. Modifying Factors: See above Comment: ROS: A comprehensive 10 system review of systems is otherwise negative aside from elements mentioned in the history of present illness. MEDICAL/SURGICAL/SOCIAL HISTORY: Medical history: PTSD, ETOH abuse now recovered 2018, anxiety Surgical history: Hernia surgery Social history: Heavy tobacco user. In a long-term relationship. Disabled combat . Employed. CONSTITUTIONAL: Adult white male, polite and cooperative, anxious, awake and alert, no obvious distress HEENT: Atraumatic and normocephalic, PERRL, EOMI. Nares patent; no rhinorrhea; no nasal mucosal edema. Tympanic membranes clear. Oropharynx clear, no exudate and moist pink mucosa. Airway patent. No lymphadenopathy. No meningismus. Cardiovascular: Normal S1/S2, regular rate, regular rhythm, without murmur rub or gallop. PULMONARY/CHEST: Symmetrical and nontender. Clear to auscultation bilaterally. Good air movement. No accessory muscle usage. ABDOMEN: Soft, nondistended, nontender, no rebound, no guarding, no peritoneal signs, no masses or organomegaly. No CVAT. EXTREMITIES: 2/2 pulses, strength 5/5, no deformities, no clubbing, no cyanosis or edema. NEUROLOGICAL: no focal neuro deficits. GCS 15. SKIN: Warm and dry, no erythema. no rash. Good capillary refill. PSYCH: Good eye contact, now flight of ideas, organized thought process, good insight and judgment, no auditory hallucinations, no visual hallucinations, no suicidal ideation with a plan, no homicidal ideation, no paranoia Source: Patient Exam Limitations: No limitations - Medical/Surgical History Hx Asthma: No Hx Chronic Respiratory Disease: No Hx Diabetes: No Hx Cardiac Disease: No Hx Renal Disease: No Hx Cirrhosis: No Hx Alcoholism: Yes Hx HIV/AIDS: No Hx Splenectomy or Spleen Trauma: No Other PMH: hernia sx, PTSD, ETOH abuse now recovered 2018, anxiety - Social History Smoking Status: Heavy smoker Constitutional: Initial Vital Signs Temperature (C) 36.5 C 11/29/18 11:44 Heart Rate 88 11/29/18 11:44 Respiratory Rate 16 11/29/18 11:44 Blood Pressure 170/114 H 11/29/18 11:44 O2 Sat (%) 97 11/29/18 11:44 O2 Delivery Mode Room Air Allergies/Adverse Reactions: No Known Allergies Allergy (Verified 10/18/18 13:50) Home Medications: Medication Instructions Recorded Seroquel 100 mg (*) 04/11/18 Prazosin HCl 10/18/18 QUEtiapine FUMARATE 10/18/18 busPIRone 10/18/18 Propranolol HCl 11/29/18 Medical Decision Making - Diagnostics EKG Interpretation: 12 lead EKG: Indication: Syncope Rhythm: Normal sinus rhythm, rate 79 beats per minute [place]: Normal Intervals: Normal QRS: Normal ST segments: Normal INTERPRETATION: Early repolarization The 12 lead EKG was interpreted by myself and with attending. Imaging Results: Imaging Impressions Chest X-Ray 11/29/18 12:29 Impression: Normal. ED Course/Re-evaluation: Vital signs show elevated blood pressure. IV access, laboratory studies, chest x-ray, EKG ordered Patient does not meet M1 hold or MIH criteria EKG my read shows normal sinus rhythm with nonspecific ST changes, early repolarization pattern Notified by RN that patient is refusing IV access and laboratory studies. Chest x-ray my read via PAC shows no opacity, no effusion, no widened mediastinum, no pneumothorax. Consult with [facility], Gonzalo, whom patient is well-known to him as well as his counselor, Ms. Lambert. Psych does not recommend inpatient admission. Called [facility] and advised patient needs to be seen early next week. Patient heart score is low risk and I do not feel that patient is having a stroke or seizure activity. Believes that this is all psychiatric in nature and needs medication adjustment. [facility] contacted [facility] who will get into contact with patient on Saturday to schedule psychiatrist appointment this week for medication adjustment. This patient was seen under the supervision of my secondary supervising physician. I evaluated and cared for this patient independently. Differential Diagnosis: Syncope including but not limited to vasovagal syncope, arrhythmia, dehydration , and blood loss. Departure - Departure Disposition: Home, Routine, Self-Care Clinical Impression: Panic disorder with agoraphobia and severe panic attacks, PTSD (post-traumatic stress disorder), Blood pressure elevated without history of HTN Condition: Good Instructions: Post Traumatic Stress Disorder (ED), Agoraphobia (ED), Panic Disorder (ED), Hypertension (ED) Additional Instructions: Please follow-up with primary care provider regarding elevated blood pressure. You may benefit from increase of propranolol up to your previous dose. Call [facility] on Saturday for follow-up appointment. Call 911 if you have thoughts of hurting or killing yourself or anyone else, or have any new or worsening symptoms that concern you. Referrals: [facility],. [Clinic] - As per Instructions [facility],. [Clinic] - As per Instructions
--- NOTE | 2018-11-29 12:57 | CPEKG ---
Test Reason : OPEN Blood Pressure : / mmHG Vent. Rate : 079 BPM Atrial Rate : 079 BPM P-R Int : 119 ms QRS Dur : 100 ms QT Int : 388 ms P-R-T Axes : 015 044 042 degrees QTc Int : [address] elev, probable normal early repol pattern Confirmed by Eric Barrow ([id number]) on 11/29/2018 12:56:42 PM Referred By: ERIC BARROW Confirmed By:Eric Barrow
[2018-11-29 13:12] VITALS: BP 164/112
== END 2018-11-29 14:04 | disposition home or self-care (01) ==
DX: F43.10 Post-traumatic stress disorder, unspecified (principal); F41.9 Anxiety disorder, unspecified; Z79.899 Other long term (current) drug therapy

== ENCOUNTER 2018-12-10 09:43 | Inpatient (IN) | payer MEDICAID ==
[2018-12-10] MEDS ORDERED: levETIRAcetam 1000MG/NACL 100 ML IV ONE (09:45)
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
[2018-12-10] MEDS: levETIRAcetam 1000MG/NACL 100 ML IV ONE ×2 (09:52→10:12)
[2018-12-10 09:57] LABS: PLATELET COUNT 307 10^3/uL (150-400)
[2018-12-10] MEDS ORDERED: ACETAMINOPHEN 325 MG TAB PO PRN (10:44)
[2018-12-10] MEDS ORDERED: ONDANSETRON 4 MG/2 ML VIAL IVP PRN (10:44)
[2018-12-10] MEDS ORDERED: ONDANSETRON DISINTEGRATING 4 MG TAB PO PRN (10:44)
[2018-12-10] MEDS ORDERED: NS 1,000 ML IV SCH (10:45)
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
--- NOTE | 2018-12-10 12:43 | CPEKG ---
Test Reason : OPEN Blood Pressure : / mmHG Vent. Rate : 111 BPM Atrial Rate : 110 BPM P-R Int : 120 ms QRS Dur : 100 ms QT Int : 330 ms P-R-T Axes : 047 041 047 degrees QTc Int : 449 ms Sinus tachycardia Confirmed by Ai Langford ([id number]) on 12/10/2018 12:43:00 PM Referred By: Ai Langford Confirmed By:Ai Langford
[2018-12-10] MEDS ORDERED: LR IV ONE (16:11)
--- NOTE | 2018-12-10 16:11 | PDCONSULT ---
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 H/o prior suicide attempts. Non lethal attempt. Regardless of whether intention was real, he has severe mental illness and needs more help # acute alcohol intoxication. BAL 84 on admission no signs or symptoms of withdrawal # Ativan overdose. Intentional. Respiratory depression. Monitor. # anion gap metabolic acidosis. Suspect dehydration and alcoholic ketoacidosis. No vision changes, denies toxic alcohol ingestion. Ativan dose too low to cause propylene glycol toxicity. No hyperglycemia # mental health disorder. Anxiety, PTSD, prior suicide times. Followed by [facility] and [facility]. They need to be made aware of it admission # possible seizure. I do not think patient actually had a seizure given clinical course, EMS history and exam. I suspect this was a pseudoseizure. Unlikely to have new onset seizure in the setting of acute alcohol intoxication (not withdrawal) and benzo overdose. No incontinence, no tongue biting, no hypoxemia. PLAN # M1 hold # IV fluids # monitor for signs symptoms of withdrawal # monitor for respiratory depression # monitor for seizure-like activity # check urine tox # advance diet as tolerated # will need to contact mental health and primary care providers and make aware of admission I was asked by Dr. De Paz of [facility] medicine to evaluate this patient for ICU care in the setting of drug overdose and suicide attempt CC suicide attempt HPI There is a very pleasant fortunate 33-year-old male with significant mental illness including PTSD, depression exerting prior suicide attempts brought in by EMS after intentional Ativan overdose, alcohol intoxication and possible suicide attempt. Patient was initially unarousable and had possible seizure like activity on route was given Ativan. He took proximally 60 mg total of Ativan. He denies taking any other medications. He denies any physical suicide attempts although has thought about hanging himself. Denies fevers, chills and nausea vomiting. Allergies No known drug allergies Medication Doxepin, Ativan, propranolol, bupropion Past medical history Depression, PTSD, anxiety, prior suicide attempt, insomnia Social history, regular tobacco use, intermittent marijuana use, binge alcohol use but no regular use Family history No history of Ativan overdose Review of systems A comprehensive 10 point review of systems was obtained is negative except as per HPI Exam Afebrile heart rate 94, blood pressure 122/82, respiratory rate 16 94% 2 L nasal cannula GEN: NAD, up in chair, interactive NEURO: Slowed speech, alert oriented x3. No focal deficits. HEENT: PERRL, EOMI, MMM, OP clear NECK: supple, trachea midline CHEST normal shape, no pes excavatum CVS: rrr no m/r/g, no JVD appreciated PULM: CTAB, no wheezes/rales/rhonchi ABD: soft, NT, ND, NABS EXT: no swelling, no cyanosis, full ROM SKIN: Multiple tattoos, no rashes, no ecchymoses PSYCH flat affect, passive suicidal ideations, no homicidal ideations. Labs Reviewed significant for mild anion gap metabolic acidosis, normal hemoglobin, no leukocytosis or left shift
[2018-12-10] MEDS: LR 1,000 ML IV SCH ×2 (16:33→16:35)
[2018-12-10] MEDS: ENOXAPARIN 40 MG/0.4 ML SYR SC SCH (16:40)
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
--- NOTE | 2018-12-10 18:56 | PDMN ---
Medical Necessity Medical necessity: Pt meets IP criteria per MD & MCG M-153; est los >2 mn for eval/tx overdose w/seizure activity; pt on M1 hold for attempted suicide; admit to ICU for close monitoring, NPO status, suicide precautions & Psych eval; hx anxiety, depression & previous suicide attempts; per H&P & order 12/10/18
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
[2018-12-10] MEDS ORDERED: OLANZapine 10 MG TAB PO ONE (21:40)
[2018-12-10] MEDS ORDERED: QUEtiapine FUMARATE 100 MG TAB PO SCH (23:15)
[2018-12-10] MEDS ORDERED: chlorproMAZINE HCL 25 MG TAB PO ONE (23:45)
[2018-12-11 07:52] LABS: PLATELET COUNT 255 10^3/uL (150-400)
[2018-12-11] MEDS: ENOXAPARIN 40 MG/0.4 ML SYR SC SCH (08:47)
[2018-12-11] MEDS ORDERED: buPROPion XL 150 MG TAB PO SCH (09:00)
[2018-12-11] MEDS ORDERED: PROPRANOLOL SR 60 MG CAP PO SCH (09:00)
--- NOTE | 2018-12-11 09:01 | HOSPPROG ---
Hospitalist Progress Note Assessment/Plan: 33-year-old male with past medical history of anxiety depression and suicidal ideation brought in by EMS after attempted overdose by taking bottle of Ativan Overdose- patient states that he took 16 mg of Ativan. patient is awake and alert at this point, and medically cleared from my perspective. -monitor in ICU -pulse ox, tele -NPO in case he deteriorates and needs intubation Suicide attempt-Has previously attempted suicide as well. Patient endorses attempting to kill himself by taking a bottle of Ativan. Still endorses suicidal ideation. On M1 hold Psychiatry consulted Will call [facility] Transfer to [facility] now that he is medically cleared. Seizure activity-doubt this represented an epileptic seizure especially after taking a large dose of Ativan. He has no focal neurologic deficits and is currently awake and alert. He was given a dose of Keppra in the emergency room. -seizure prophylaxis Increased anion gap metabolic acidosis- resolved. Anxiety- recently started on Ativan for this. Obviously I would hold this in the setting of an overdose. Also on Inderal. Depression- take Seroquel, Wellbutrin. Prophylaxis- SCDs Fluids-intravenous saline Electrolytes- within normal limits Nutrition- NPO Cor-DNR Dispo-medically cleared for transfer to [facility]. Subjective: patient without complaints. Objective: Vital Signs Temp Pulse Resp BP Pulse Ox 36.4 C 69 18 99/81 H 92 12/10/18 23:59 12/11/18 08:00 12/11/18 08:00 12/11/18 08:00 12/11/18 08:00 Laboratory Results 12/11/18 07:30 12/11/18 07:30 12/10/18 12/11/18 12/12/18 05:59 05:59 05:59 Intake Total 500 Output Total 275 Balance 225 - Physical Exam Constitutional: no apparent distress, appears nourished, not in pain Eyes: PERRL, anicteric sclera, EOMI Ears, Nose, Mouth, Throat: moist mucous membranes, hearing normal, ears appear normal, no oral mucosal ulcers Cardiovascular: regular rate and rhythym, no murmur, rub, or gallop Respiratory: no respiratory distress, no rales or rhonchi, clear to auscultation Gastrointestinal: normoactive bowel sounds, soft, non-tender abdomen, no palpable masses Genitourinary: no bladder fullness, no bladder tenderness, no renal bruits Skin: no rashes or abrasions, no fluctuance, no induration Musculoskeletal: full muscle strength, no muscle tenderness, normal joint ROM Neurologic: AAOx3, sensation intact bilaterally Psychiatric: interacting appropriately, not anxious, not encephalopathic, thought process linear Lymph, Heme, Immunologic: no cervical LAD, no supraclavicular LAD ICD10 Worksheet Patient Problems: Problems Problem Status Onset Overdose Acute Suicide attempt Acute
[2018-12-11 12:19] VITALS: BP 133/88
--- NOTE | 2018-12-11 12:54 | ASMTTCLDSP ---
[facility] Discharge Disposition Disposition: Answers: Admit Disposition Notes: Notes: Admit [facility] Luisa Cava. Discharge Concerns/Recommendations: Notes: In consultation with [facility] ICU hospitalist and on-call psychiatrist, Theo Corbin MD, both concurred that pt appears to meet 27-65 criteria requiring psychiatric hospitalization as pt appears to be at risk of harm to self due to a mental illness condition. Pt was read the Patient Rights and Responsibilities Statement on 12/11/18 at 1100, original placed on chart, and was given photocopy of Rights. Pt signed the Patient Rights. Pt was given the 3N prohibited belongings list while in the ICU. Was patient given the Answers: Yes Inpatient Behavioral Health Prohibited Belongings List while in the ED? For inpatient Theo Corbin MD admission, the following psychiatrist agreed to accept patient for admission to Behavioral Health ([facility]): Type of Hold: Answers: M1/72-hour Hold Hold initiated by: Answers: Police Date Signed: 12/11/2018 12:53 PM Electronically Signed By:Rodrigo Kinsey
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
--- NOTE | 2018-12-11 13:36 | PDDCSUM ---
Discharge Summary Discharge Summary: Discharge diagnosis Suicide attempt Lorazepam overdose Suicidal ideation Depression Anxiety Increased anion gap metabolic acidosis Patient was brought to the emergency ro found unresponsive in his residence. On route patient had a reported seizure or seizure activity and was given Versed. In the ER patient was able to admit that he had taken 16 mg of Ativan in an attempt to kill himself. Patient continued to have suicidal ideation. He was started on IV fluids and put on an M1 hold and admitted to the intensive care unit. He was monitored overnight and vital signs remained stable. By the 2nd day patient had improved faster than expected and was able to be medically cleared for transfer to inpatient Behavioral Health. Repeat labs were all unremarkable patient's vital signs were stable and examination was benign. Patient was accepted at [facility] for inpatient Behavioral Health. Disposition Transfer to inpatient behavior health at [facility] Medications Lorazepam was discontinued Other medications as per medication reconciliation
[2018-12-11] MEDS ORDERED: DOXEPIN HCL 25 MG CAP PO SCH (21:00)
--- NOTE | 2018-12-12 11:56 | CPEKG ---
Test Reason : OPEN Blood Pressure : / mmHG Vent. Rate : 097 BPM Atrial Rate : 097 BPM P-R Int : 111 ms QRS Dur : 098 ms QT Int : 345 ms P-R-T Axes : 039 018 038 degrees QTc Int : [address] elev, probable normal early repol pattern Confirmed by Bernardo Au ([id number]) on 12/12/2018 11:55:33 AM Referred By: Raleigh De Paz Confirmed By:Bernardo Au
== END 2018-12-11 14:41 | DRG 817 ==
LOC: EDBD 09:43 → EEVIPCON 09:43 → MERGE 10:07 → F2N 11:19
PROVIDERS: ADMIT Internal Medicine; ATTEND Internal Medicine
DX: T42.4X2A Poisoning by benzodiazepines, intentional self-harm, initial encounter (principal); E87.2 Acidosis; F32.9 Major depressive disorder, single episode, unspecified; F41.9 Anxiety disorder, unspecified; Z66 Do not resuscitate; F43.10 Post-traumatic stress disorder, unspecified; G40.89 Other seizures; G47.00 Insomnia, unspecified
CPT/HCPCS: 80305; 96365; G0480; J1650; J1953

== ENCOUNTER 2018-12-11 14:45 | Inpatient (IN) | payer MEDICAID, OTHER ==
[2018-12-11] MEDS ORDERED: ACETAMINOPHEN 325 MG TAB PO PRN (17:15)
[2018-12-11] MEDS ORDERED: MAG HYDROX/AL HYDROX/SIMETH 30 ML UDCUP PO PRN (17:15)
[2018-12-11] MEDS ORDERED: MAGNESIUM HYDROXIDE 30 ML UDCUP PO PRN (17:15)
[2018-12-11] MEDS ORDERED: OLANZapine DISINTEGR 10 MG TAB PO PRN (17:15)
[2018-12-11] MEDS ORDERED: NICOTINE POLACRILEX 2 MG GUM B PRN (17:15)
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
[2018-12-12] MEDS: PROPRANOLOL SR 60 MG CAP PO SCH (11:18)
--- NOTE | 2018-12-12 14:56 | ASMTCMCOM ---
CM Note CM Note Notes: CC spoke to Patricia from [facility] who shared some information. Client is an open client with [facility] and see Dr. Hawk She notes that client suffers from PTSD, Depression, Panic Attacks and extreme trauma. She noted, that client might start the "[facility]," program run by Florence Lambert. She noted, that "we are going to discontinue Prozac and thorazine. While increasing his Wellburtin from 150mg to BID, etc. Also, client takes Ativan 1-2 mg as needed and 60 mg of Propranolol. Patricia would like to see client before he discharges. She would like weekend CC to ask where client is staying or if he is working anywhere, etc. Date Signed: 12/12/2018 02:56 PM Electronically Signed By:Дмитрий Rosenberg. .Edie.,R.P
--- NOTE | 2018-12-12 18:07 | SOAPPROG ---
SOAP Progress Note Assessment/Plan: Assessment: Plan: 12/12/18 18:07 Mood/SI: Much improved today. He denies any ongoing SI. Will monitor overnight and consider d/c in a.m. Subjective: Pt seen, discussed with staff. He is pleasant and conversant today. Claims complete amnesia for past three days. Asks for a trial of Adderall. I suggested we stick with Dr. Cuenca's plan to use doxepin. He is agreeable to this. No behavioral issues, socializing with fellow patients. MSE: Adequately groomed, coop. Affect is euthymic, stable, approp. Smiles and laughs frequently. Mood is "pretty good." TP is linear. TC reveals no psychosis. Denies SI/HI/. Objective: Vital Signs Temp Pulse Resp BP Pulse Ox 36.6 C 76 12 123/76 H 97 12/12/18 06:00 12/12/18 06:00 12/12/18 06:00 12/12/18 06:00 12/12/18 06:00 - Time Spent With Patient Time Spent With Patient: 25" ICD10 Worksheet Patient Problems: Problems Problem Status Onset Overdose Acute Suicide attempt Acute
[2018-12-12] MEDS ORDERED: DOXEPIN HCL 50 MG CAP PO SCH (21:00)
[2018-12-13 06:37] VITALS: BP 122/86
[2018-12-13] MEDS: PROPRANOLOL SR 60 MG CAP PO SCH ×2 (08:55→09:06)
--- NOTE | 2018-12-13 15:12 | ASMTBHDC ---
Notes Note: Notes: This physician underwriter met with Shira Reese, to discuss the patient's discharge. Additionally, this physician underwriter contacted, Marilu Rodriguez LPC, to confirm plan and follow up services. The patient will see vladislav Michel, 12/13/18 @ 17:00 upon discharge. This physician underwriter spoke with the patient's family member, who expressed confidence in his safety and stability. Date Signed: 12/13/2018 01:50 PM Electronically Signed By:Daniella Hatch. AMELIA,Shira,R-DMT
--- NOTE | 2018-12-13 15:28 | SOAPPROG ---
GIL Progress Note Assessment/Plan: Assessment: Plan: PER DR. BORRERO: 12/12/18 18:07 Mood/SI: Much improved today. He denies any ongoing SI. Will monitor overnight and consider d/c in a.m. Subjective: Pt seen, discussed with staff. He is pleasant and conversant today. Claims complete amnesia for past three days. Asks for a trial of Adderall. I suggested we stick with Dr. Cuenca's plan to use doxepin. He is agreeable to this. No behavioral issues, socializing with fellow patients. MSE: Adequately groomed, coop. Affect is euthymic, stable, approp. Smiles and laughs frequently. Mood is "pretty good." TP is linear. TC reveals no psychosis. Denies SI/HI/. DISCHARGE 12/13/18 14:56 per staff, slept 7hr. attending groups, socializing appropriately, no behavioral concerns. Met with pt and mendel. MEDINA Brewer also present. reviewed recent pertinent history. Pt expresses feeling ready to go home. Has f/u established and reports feeling better since being in hospital. Mendel expresses no reservations about pt d/c or any safety concerns "as long as he doesn't drink alcohol or use Prozac" Reviewed precipitants to admission. states there are old/prior rx meds still at home including Prozac, Ativan, Wellbutrin, Seroquel- strongly advised to dispose of these as they are no longer prescribed or indicated, and pt has been doing well with just the Doxepin at HS. Pt states he is not used to just taking meds at HS, and does acknowledge "feeling better". agrees to dispose of meds pt is no longer supposed to be taking, pt also agrees he has no issues with this and will allow her to do so without any protests, although would like to keep Seroquel 200mg as prn and discuss any use of this med with his prescriber. Agrees to NOT take any until discusses with Dr. Briceño. does not think his prescriber knows he still takes Seroquel prn occasionally. Discussed substance use hx and risks for abuse of Rx medications with this hx, also THC effects on mental health. Also educated on risks of antidepressant medication use if any concern for BMD diagnosis. Both express understanding. and pt report Wellbutrin was a new med a few dd prior to admission. Pt states THC used to help anxiety but since in an ITC program ("[facility]") he has not been able to use THC. Expresses motivation to continue with outpt therapy as scheduled. CC has talked with outpt therapist who will see him at 5pm today. Has Rx at [place] [facility] awaiting pickup, Rxd by outpt psychiatrist Dr. Briceño , for Doxepin 100mg. MSE: cooperative, groomed, casually dressed, good eye contact, nml speech rate/vol, nml psychom activity. observed to be appropriately interacting with and 10mo child, mood "a lot better", affect full range, engaging. thoughts linear/ goal-directed. denied any psychotic sxs. no ah/vh. did not appear responding to any internal stimuli. i/j both fair. PLAN: 1. No indication for continued inpt stay as involuntary pt beyond M-1 expiration 2. F/u with therapist Estela Lambert at 5pm today as scheduled. cc confirmed. 3. Continue with outpt therapy groups , states he attends vet group q , wilderness therapy group Q , and indiv therapy 2-3x/wk, also Dr. Briceño for oupt psychiatry 4. agrees to dispose of meds pt is no longer taking/Rxd. including recent wellbutrin rx. However, pt wants to keep his Seroquel as prn. He agreed to tell Dr. Briceño that he has been using this occasionally for sleep and further discuss any continued use of this medication with Dr. Briceño. In the meantime, agrees to abstain from any use of this. 5. Cont Doxepin 100mg HS as per outpt prescriber. Has Rx at [place] pharmacy. Consider bubble packaging for meds through pharmacy given his OD hx. 6. Afton to be at low acute risk for harm to self/others if continues to maintain sobriety, take meds as Rxd and f/u with outpatient treatment plan as recommended. Pt is stable for d/c to home today with mendel. Objective: Vital Signs Temp Pulse Resp BP Pulse Ox 36.4 C 52 L 14 122/86 H 97 12/13/18 06:00 12/13/18 06:00 12/13/18 06:00 12/13/18 06:00 12/13/18 06:00 - Time Spent With Patient Time Spent With Patient: 35min - Pending Discharge Pending Discharge Within 24 Hours: Yes Pending Discharge Date: 12/13/18 Pending Discharge Time: 16:00 ICD10 Worksheet Patient Problems: Problems Problem Status Onset Overdose Acute Suicide attempt Acute
== END 2018-12-13 15:51 | disposition home or self-care (01) | DRG 885 ==
LOC: BBEH 14:45 → MERGE 14:45 → BBEH 17:54
PROVIDERS: ADMIT Psychiatry & Neurology Psychiatry; ATTEND Psychiatry & Neurology Psychiatry
DX: F31.9 Bipolar disorder, unspecified (principal); F13.20 Sedative, hypnotic or anxiolytic dependence, uncomplicated; F10.20 Alcohol dependence, uncomplicated; F12.90 Cannabis use, unspecified, uncomplicated; F43.10 Post-traumatic stress disorder, unspecified; F60.2 Antisocial personality disorder